=== PATIENT | male | born 1945 | race Native Hawaiian/Other Pacific Islander ===

== ENCOUNTER 2017-08-30 16:29 | Outpatient (CLI) | payer OTHER | END 2017-08-30 19:35 | disposition home or self-care (01) | LOC: LABW 16:29 | DX: B35.1 Tinea unguium (principal) | CPT/HCPCS: 36415; 84450; 84460 ==

== ENCOUNTER 2018-10-04 14:52 | Outpatient (CLI) | payer OTHER ==
[2018-10-04 15:21] LABS: PLATELET COUNT 197 K/uL (142-355)
[2018-10-04 15:38] LABS: POTASSIUM 4.1 mmol/L (3.6-5.2)
[2018-10-04 16:33] LABS: PARTIAL THROMBOPLASTIN TIME 26.1 SECONDS (24.5-33.6)
== END 2018-10-04 23:07 | disposition home or self-care (01) ==
LOC: LABW 14:52
PROVIDERS: Podiatrist
DX: Z01.810 Encounter for preprocedural cardiovascular examination (principal); Z01.811 Encounter for preprocedural respiratory examination; Z01.812 Encounter for preprocedural laboratory examination; Z79.01 Long term (current) use of anticoagulants; Z51.81 Encounter for therapeutic drug level monitoring
CPT/HCPCS: 36415; 80053; 85002; 85027; 85610; 85730; 93005